=== PATIENT | male | born 1950 | race Caucasian/White ===

== ENCOUNTER → 2017-03-10 | Outpatient (CLI) | payer OTHER | END | disposition home or self-care (01) | LOC: CVU 14:40 | PROVIDERS: ATTEND Nurse Practitioner Family | DX: I74.3 Embolism and thrombosis of arteries of the lower extremities (principal); I70.203 Unspecified atherosclerosis of native arteries of extremities, bilateral legs; R20.0 Anesthesia of skin; I10 Essential (primary) hypertension; Z87.891 Personal history of nicotine dependence; Z95.1 Presence of aortocoronary bypass graft | CPT/HCPCS: 93922; 93925 ==

== ENCOUNTER → 2017-05-03 | Outpatient (CLI) | payer OTHER ==
[~2017-05-03] MED LIST: amlodipine PO
[2017-05-03 16:43] LABS: BLOOD UREA NITROGEN 26 mg/dL (7-18)
[2017-05-03 16:48] LABS: ASPARTATE AMINO TRANSFERASE 19 U/L (15-37)
[2017-05-03 17:02] LABS: DIFF TOTAL CELLS COUNTED 100 CELL DIFF
[2017-05-03 17:16] LABS: ANISOCYTOSIS 1+
[2017-05-03 17:18] LABS: VERIFY COUNTS? YES
== END | disposition home or self-care (01) ==
LOC: STAR 14:44
PROVIDERS: ATTEND Surgery Vascular Surgery
DX: Z01.818 Encounter for other preprocedural examination (principal); I70.212 Atherosclerosis of native arteries of extremities with intermittent claudication, left leg
CPT/HCPCS: 36415; 80053; 85025; 93005

== ENCOUNTER 2017-05-09 05:31 | Inpatient (IN) | payer OTHER, MEDICARE ==
[2017-05-03 15:30] VITALS: BP 164/80
[~2017-05-09] VITALS: Ht 177.8 cm; Wt 90.1 kg
[2017-05-09] MEDS ORDERED: ATEN25TA PO (06:01)
[2017-05-09] MEDS ORDERED: THROMBIN 5,000 UNIT VIAL TP ONE (06:24)
[2017-05-09] MEDS ORDERED: BACITRACIN 50,000 UNIT ONE (06:24)
[2017-05-09] MEDS ORDERED: PROTAMINE SULFATE 10 MG/ML, 5ML ONE (06:24)
[2017-05-09] MEDS ORDERED: HEPARIN 1,000 UNITS/ML, 10ML ONE (06:24)
[2017-05-09] MEDS ORDERED: LACTATED RINGERS 1,000 ML IV SCH (06:39)
[2017-05-09] MEDS ORDERED: FENTANYL PF 250 MCG/5ML ONE (06:59)
[2017-05-09] MEDS ORDERED: MIDAZOLAM 1 MG/ML, 2ML ONE (06:59)
[2017-05-09] MEDS ORDERED: DEXAMETHASONE 4 MG/ML, 1ML ONE (07:21)
[2017-05-09] MEDS ORDERED: CEFAZOLIN 1,000 MG ONE (07:21)
[2017-05-09] MEDS ORDERED: ONDANSETRON 2MG/ML, 2ML ONE ×2 (07:21→10:25)
[2017-05-09] MEDS ORDERED: PROPOFOL 10 MG/ML, 20ML ONE (07:21)
[2017-05-09] MEDS ORDERED: SUCCINYLCHOLINE 20 MG/ML, 10ML ONE (07:21)
[2017-05-09] MEDS ORDERED: ROCURONIUM 10 MG/ML ONE (07:21)
[2017-05-09] MEDS ORDERED: OXYcodone 5 MG/5 ML ORAL.SOL UDC PO PRN (08:30)
[2017-05-09] MEDS ORDERED: FENTANYL PF 100 MCG/2ML IV PRN (08:30)
[2017-05-09] MEDS ORDERED: ONDANSETRON 2MG/ML, 2ML IVPush PRN (08:30)
[2017-05-09] MEDS ORDERED: ACETAMINOPHEN 325 MG TABLET PO PRN (08:30)
[2017-05-09] MEDS ORDERED: METOCLOPRAMIDE 5 MG/ML, 2ML IV PRN (08:30)
[2017-05-09] MEDS ORDERED: LABETALOL 5MG/ML, 20ML ONE (09:13)
[2017-05-09] MEDS ORDERED: hydrALAzine 20 MG/ML, 1ML ONE (09:13)
[2017-05-09] MEDS ORDERED: HYDROmorphone 1 MG/ML, 1ML ONE ×3 (09:13→10:19)
[2017-05-09] MEDS: LABETALOL 5MG/ML, 20ML IV PRN ×2 (09:16→09:28)
[2017-05-09] MEDS: HYDROmorphone 1 MG/ML, 1ML IV PRN ×7 (09:21→10:41)
[2017-05-09] MEDS: hydrALAzine 20 MG/ML, 1ML IV PRN ×2 (09:25→09:47)
[2017-05-09] MEDS ORDERED: ACETAMINOPHEN 650 MG/20.3 ML UDC ONE (09:38)
[2017-05-09] MEDS ORDERED: OXYcodone 5 MG/5 ML ORAL.SOL UDC ONE ×3 (09:39)
[2017-05-09 11:25] VITALS: BP 126/86
[2017-05-09] MEDS ORDERED: morphine SULFATE 10 MG/ML, 1ML IV PRN (12:00)
[2017-05-09] MEDS ORDERED: ONDANSETRON 2MG/ML, 2ML IV PRN (12:00)
[2017-05-09] MEDS: POTASSIUM CHLORIDE 20 MEQ in D5%-0.45% NACL 1,000 ML IV SCH ×2 (15:16→23:02)
[2017-05-09] MEDS: CEFAZOLIN PMX 1GM/50ML 50 ML IVPB SCH ×2 (15:16→23:00)
[2017-05-09] MEDS: HYDROcodone/APAP 5/325 TABLET PO PRN ×2 (19:40→21:01)
[2017-05-09] MEDS: SODIUM CHLORIDE FLUSH 10ML SYR IVF SCH (19:40)
[2017-05-09 20:00] VITALS: BP 123/70
[2017-05-10 00:05] VITALS: BP 120/65
[2017-05-10 04:00] VITALS: BP 133/75
[2017-05-10] MEDS: HYDROcodone/APAP 5/325 TABLET PO PRN ×2 (05:48→13:28)
[2017-05-10] MEDS: ATENOLOL 25 MG TABLET PO SCH (05:48)
[2017-05-10] MEDS: ENOXAPARIN 30 MG/0.3 ML SQ SCH ×2 (05:48→18:33)
[2017-05-10 06:55] VITALS: BP 125/74
[2017-05-10] MEDS: SODIUM CHLORIDE FLUSH 10ML SYR IVF SCH ×2 (09:00→19:14)
[2017-05-10] MEDS: SODIUM CHLORIDE FLUSH 3ML SYRINGE IVF SCH ×2 (09:23→19:20)
[2017-05-10 13:20] VITALS: BP 131/73
[2017-05-10 18:46] VITALS: BP 137/72
[2017-05-11 00:24] VITALS: BP 148/80
[2017-05-11] MEDS: HYDROcodone/APAP 5/325 TABLET PO PRN ×2 (00:28→05:26)
[2017-05-11] MEDS: ENOXAPARIN 30 MG/0.3 ML SQ SCH (05:25)
[2017-05-11] MEDS: ATENOLOL 25 MG TABLET PO SCH (05:26)
[2017-05-11 09:15] VITALS: BP 139/72
[2017-05-11] MEDS ORDERED: HYDR-2442 PO (09:20)
[2017-05-11] MEDS: SODIUM CHLORIDE FLUSH 10ML SYR IVF SCH (09:23)
[2017-05-11] MEDS: SODIUM CHLORIDE FLUSH 3ML SYRINGE IVF SCH (09:23)
== END 2017-05-11 09:30 | disposition home or self-care (01) | DRG 254 ==
LOC: OUT 05:31 → 4NOR 11:20 → OUT 12:37 → 4NOR 12:40
PROVIDERS: ADMIT Surgery Vascular Surgery; ATTEND Surgery Vascular Surgery
PROC: 041L0JL Bypass Left Femoral Artery to Popliteal Artery with Synthetic Substitute, Open Approach (ICD-10-PCS; principal; 2017-05-09 07:30)
DX: I70.212 Atherosclerosis of native arteries of extremities with intermittent claudication, left leg (principal); F17.210 Nicotine dependence, cigarettes, uncomplicated
CPT/HCPCS: 36415; 86850; 86900; C1729; J0690; J1100; J1170; J1644; J1650; J2250; J2405; J2704; J2720; J3010; J3480; C1768; J0330; J0360

== ENCOUNTER → 2017-08-10 | Outpatient (CLI) | payer OTHER ==
[~2017-08-10] MED LIST changes: +ATEN25TA PO; +HYDR-2442 PO
== END | disposition home or self-care (01) ==
LOC: EDSTATUS 13:00 → RAD 13:03
PROVIDERS: ATTEND Surgery Vascular Surgery
DX: I70.203 Unspecified atherosclerosis of native arteries of extremities, bilateral legs (principal)
CPT/HCPCS: 36415; 82565

== ENCOUNTER → 2017-08-17 | Outpatient (CLI) | payer MEDICARE, OTHER ==
[~2017-08-17] MED LIST changes: +PANT40TA5 PO; +TRAM50TA2 PO
== END | disposition home or self-care (01) ==
LOC: RAD 15:01
PROVIDERS: ATTEND Nurse Practitioner Family
DX: F17.200 Nicotine dependence, unspecified, uncomplicated (principal)
CPT/HCPCS: 71020

== ENCOUNTER → 2017-10-12 | Outpatient (CLI) | payer MEDICARE, OTHER ==
[~2017-10-12] MED LIST changes: +HYDR-3240 PO; +WARF2.5T PO
== END | disposition home or self-care (01) ==
LOC: CVU 06:47
PROVIDERS: ATTEND Surgery
DX: Z01.818 Encounter for other preprocedural examination (principal); I70.212 Atherosclerosis of native arteries of extremities with intermittent claudication, left leg; I10 Essential (primary) hypertension
CPT/HCPCS: 93922; 93926

== ENCOUNTER 2017-11-23 14:49 | Inpatient (IN) | payer OTHER ==
[~2017-11-23] VITALS: Ht 177.8 cm; Wt 89.3 kg
[~2017-11-23 14:49] MED LIST changes: +ONDANSETRON 2MG/ML, 2ML ONE; +RIVA20TA PO
[2017-11-23 15:31] VITALS: BP 145/78
[2017-11-23] MEDS ORDERED: LACTATED RINGERS 1,000 ML IV SCH (15:37)
[2017-11-23] MEDS ORDERED: MIDAZOLAM 1 MG/ML, 2ML ONE (16:46)
[2017-11-23] MEDS ORDERED: FENTANYL PF 250 MCG/5ML ONE (16:46)
[2017-11-23] MEDS ORDERED: BUPIVACAINE/PF 0.5% ONE (17:14)
[2017-11-23] MEDS ORDERED: BACITRACIN 50,000 UNIT ONE (17:15)
[2017-11-23] MEDS ORDERED: EPINEPHRINE 1 MG/ML, 1ML ONE (17:15)
[2017-11-23] MEDS ORDERED: hydrALAzine 20 MG/ML, 1ML IV PRN ×2 (17:30→20:00)
[2017-11-23] MEDS ORDERED: LABETALOL 5MG/ML, 20ML IV PRN (17:30)
[2017-11-23] MEDS ORDERED: ONDANSETRON 2MG/ML, 2ML IVPush PRN (17:30)
[2017-11-23] MEDS ORDERED: PROMETHAZINE 25 MG/ML, 1ML IV PRN (17:30)
[2017-11-23] MEDS ORDERED: ACETAMINOPHEN 325 MG TABLET PO PRN (17:30)
[2017-11-23] MEDS ORDERED: FENTANYL PF 100 MCG/2ML IV PRN (17:30)
[2017-11-23] MEDS ORDERED: HYDROmorphone 1 MG/ML, 1ML IV PRN (17:30)
[2017-11-23] MEDS ORDERED: OXYcodone 5 MG/5 ML ORAL.SOL UDC PO PRN (17:30)
[2017-11-23] MEDS ORDERED: DEXAMETHASONE 4 MG/ML, 1ML ONE (17:37)
[2017-11-23] MEDS ORDERED: ROCURONIUM 10 MG/ML,10ML ONE (17:40)
[2017-11-23] MEDS ORDERED: PROPOFOL 10 MG/ML, 20ML ONE (17:40)
[2017-11-23] MEDS ORDERED: VANCOMYCIN 1,000 MG ONE (17:55)
[2017-11-23 19:30] VITALS: BP 120/66
[2017-11-23] MEDS ORDERED: ACETAMINOPHEN 650 MG SUPP PR PRN (20:00)
[2017-11-23] MEDS ORDERED: PHARMACOKINETIC MONITORING MC PRN (20:00)
[2017-11-23] MEDS ORDERED: KETOROLAC 30 MG/1 ML IV PRN (20:00)
[2017-11-23] MEDS ORDERED: VANCOMYCIN PER PHARMACY MC PRN (20:00)
[2017-11-23] MEDS ORDERED: PHARMACOKINETIC CONSULTATION MC ONE (20:00)
[2017-11-23] MEDS: POTASSIUM CHLORIDE 20 MEQ in D5%-0.45% NACL 1,000 ML IV SCH (21:43)
[2017-11-23] MEDS: SODIUM CHLORIDE FLUSH 10ML SYR IVF SCH (21:44)
[2017-11-23] MEDS: DIPHENHYDRAMINE 50 MG/ML, 1ML IV PRN (23:49)
[2017-11-23 23:54] VITALS: BP 115/64
[2017-11-24 03:48] VITALS: BP 116/65
[2017-11-24 05:43] LABS: BASOPHILS # (AUTO) 0.01 x10^3/uL (0-0.1); BASOPHILS % (AUTO) 0 % (0-1); EOSINOPHILS # (AUTO) 0.01 x10^3/uL (0-0.4); EOSINOPHILS % (AUTO) 0 % (1-7); LYMPHOCYTES # (AUTO) 2.37 x10^3/uL (1-3.4); LYMPHOCYTES % (AUTO) 44 % (22-44); MD NO; MEAN CORPUSCULAR HGB CONC 33.2 g/dL (33.2-36.2); MEAN CORPUSCULAR VOLUME 84.3 fL (81-97); MONOCYTES # (AUTO) 0.14 x10^3/uL (0.2-0.8); MONOCYTES % (AUTO) 3 % (2-9); NEUTROPHILS # (AUTO) 2.89 x10^3/uL (1.8-6.8); NEUTROPHILS % (AUTO) 53 % (42-75); PLATELET COUNT 176 x10^3/uL (130-400); RED BLOOD COUNT 3.63 x10^6/uL (4.38-5.82); RED CELL DISTRIBUTION WIDTH 15.3 % (9.4-14.8)
[2017-11-24 05:54] LABS: ALBUMIN 2.2 g/dL (3.4-5.0); ANION GAP 9 mmol/L (5-15); CALCIUM 8.1 mg/dL (8.5-10.1); CHLORIDE 110 mmol/L (98-107); CREATININE 1.99 mg/dL (0.7-1.3)
[2017-11-24] MEDS: ATENOLOL 25 MG TABLET PO SCH (06:02)
[2017-11-24 06:30] VITALS: BP 133/65
[2017-11-24] MEDS: SODIUM CHLORIDE FLUSH 10ML SYR IVF SCH ×2 (08:08→19:42)
[2017-11-24] MEDS: POTASSIUM CHLORIDE 20 MEQ in D5%-0.45% NACL 1,000 ML IV SCH ×2 (08:47→22:56)
[2017-11-24] MEDS ORDERED: FENTANYL PF 100 MCG/2ML ONE (09:57)
[2017-11-24] MEDS ORDERED: MIDAZOLAM 1 MG/ML, 2ML ONE (09:57)
[2017-11-24] MEDS ORDERED: PROPOFOL 10 MG/ML, 20ML ONE (09:59)
[2017-11-24] MEDS ORDERED: CEFAZOLIN 1,000 MG ONE (09:59)
[2017-11-24] MEDS ORDERED: ONDANSETRON 2MG/ML, 2ML ONE (09:59)
[2017-11-24] MEDS ORDERED: DEXAMETHASONE 4 MG/ML, 1ML ONE (09:59)
[2017-11-24] MEDS: PIPERACILLIN/TAZO/PMX 3.375GM 50 ML IV SCH ×3 (10:21→22:56)
[2017-11-24] MEDS ORDERED: PIPERACILLIN/TAZO/PMX 3.375GM 50 ML ONE (10:29)
[2017-11-24] MEDS ORDERED: DAKIN'S SOLUTION 1/4 STRENGTH 1,000 ML IRRIG SOLN EXT ONE (10:30)
[2017-11-24] MEDS ORDERED: MEPERIDINE/PF 25MG/0.5ML IVPush PRN (11:00)
[2017-11-24] MEDS ORDERED: ALBUTEROL/IPRATROPIUM 2.5MG/0.5MG, 3 ML NPPB PRN (11:00)
[2017-11-24] MEDS ORDERED: LABETALOL 5MG/ML, 20ML IV PRN (11:00)
[2017-11-24] MEDS ORDERED: hydrALAzine 20 MG/ML, 1ML IV PRN (11:00)
[2017-11-24] MEDS ORDERED: OXYcodone 5 MG/5 ML ORAL.SOL UDC PO PRN (11:00)
[2017-11-24] MEDS ORDERED: MIDAZOLAM 1 MG/ML, 2ML IV PRN (11:00)
[2017-11-24] MEDS ORDERED: ONDANSETRON 2MG/ML, 2ML IVPush PRN (11:00)
[2017-11-24] MEDS ORDERED: PROMETHAZINE 25 MG/ML, 1ML IV PRN (11:00)
[2017-11-24] MEDS ORDERED: FENTANYL PF 100 MCG/2ML IV PRN (11:00)
[2017-11-24] MEDS ORDERED: DIAZEPAM 5 MG/ML, 2ML IVPush PRN (11:00)
[2017-11-24] MEDS ORDERED: ACETAMINOPHEN 325 MG TABLET PO PRN (11:00)
[2017-11-24] MEDS ORDERED: HYDROmorphone 1 MG/ML, 1ML IV PRN (11:00)
[2017-11-24 12:24] VITALS: BP 138/71
[2017-11-24] MEDS ORDERED: PHENYLEPHRINE 10 MG/ML ONE (16:26)
[2017-11-24] MEDS: VANCOMYCIN 1,500 MG in SODIUM CHLORIDE 0.9% 250 ML IV SCH (17:06)
[2017-11-24 19:15] VITALS: BP 114/66
[2017-11-24] MEDS: DIPHENHYDRAMINE 25 MG CAPSULE PO PRN (22:56)
[2017-11-25] VITALS (8 sets, daily range): BP systolic 112–177; BP diastolic 62–86
[2017-11-25] MEDS: PIPERACILLIN/TAZO/PMX 3.375GM 50 ML IV SCH ×4 (05:42→22:46)
[2017-11-25] MEDS: ATENOLOL 25 MG TABLET PO SCH (05:42)
[2017-11-25] MEDS: SODIUM CHLORIDE FLUSH 10ML SYR IVF SCH ×2 (07:33→21:00)
[2017-11-25] MEDS: POTASSIUM CHLORIDE 20 MEQ in D5%-0.45% NACL 1,000 ML IV SCH ×2 (09:10→18:32)
[2017-11-25] MEDS: DIPHENHYDRAMINE 25 MG CAPSULE PO PRN (22:46)
[2017-11-26 02:49] VITALS: BP 112/61
[2017-11-26] MEDS: D5%-0.45NACL+KCL 20MEQ 1,000 ML IV SCH ×2 (04:33→16:44)
[2017-11-26] MEDS: PIPERACILLIN/TAZO/PMX 3.375GM 50 ML IV SCH ×2 (04:33→11:22)
[2017-11-26] MEDS: ATENOLOL 25 MG TABLET PO SCH (05:41)
[2017-11-26] MEDS: VANCOMYCIN 1,500 MG in SODIUM CHLORIDE 0.9% 250 ML IV SCH (06:04)
[2017-11-26 07:15] VITALS: BP 121/70
[2017-11-26] MEDS: SODIUM CHLORIDE FLUSH 10ML SYR IVF SCH ×2 (09:00→20:00)
[2017-11-26 12:30] VITALS: BP 119/72
[2017-11-26] MEDS ORDERED: HEPARIN 1,000 UNITS/ML, 10ML ONE (13:42)
[2017-11-26] MEDS ORDERED: BACITRACIN 50,000 UNIT ONE (13:42)
[2017-11-26] MEDS ORDERED: BUPIVACAINE/PF 0.5% ONE (13:42)
[2017-11-26] MEDS ORDERED: THROMBIN 5,000 UNIT VIAL TP ONE (13:42)
[2017-11-26] MEDS ORDERED: EPINEPHRINE 1 MG/ML, 1ML ONE (13:42)
[2017-11-26] MEDS ORDERED: MIDAZOLAM 1 MG/ML, 2ML ONE (13:46)
[2017-11-26] MEDS ORDERED: FENTANYL PF 100 MCG/2ML ONE (13:46)
[2017-11-26] MEDS ORDERED: PROPOFOL 10 MG/ML, 20ML ONE (13:54)
[2017-11-26] MEDS ORDERED: PHENYLEPHRINE 10 MG/ML ONE (13:54)
[2017-11-26] MEDS ORDERED: DEXAMETHASONE 4 MG/ML, 1ML ONE (13:54)
[2017-11-26] MEDS ORDERED: ONDANSETRON 2MG/ML, 2ML IVPush PRN (14:30)
[2017-11-26] MEDS ORDERED: hydrALAzine 20 MG/ML, 1ML IV PRN (14:30)
[2017-11-26] MEDS ORDERED: FENTANYL PF 100 MCG/2ML IV PRN (14:30)
[2017-11-26] MEDS ORDERED: ALBUTEROL/IPRATROPIUM 2.5MG/0.5MG, 3 ML NPPB PRN (14:30)
[2017-11-26] MEDS ORDERED: MIDAZOLAM 1 MG/ML, 2ML IV PRN (14:30)
[2017-11-26] MEDS ORDERED: MEPERIDINE/PF 25MG/0.5ML IVPush PRN (14:30)
[2017-11-26] MEDS ORDERED: LABETALOL 5MG/ML, 20ML IV PRN (14:30)
[2017-11-26] MEDS ORDERED: HYDROmorphone 1 MG/ML, 1ML IV PRN (14:30)
[2017-11-26] MEDS ORDERED: ACETAMINOPHEN 325 MG TABLET PO PRN (14:30)
[2017-11-26] MEDS ORDERED: PROMETHAZINE 12.5 MG SUPP PR PRN (14:30)
[2017-11-26] MEDS ORDERED: DIAZEPAM 5 MG/ML, 2ML IVPush PRN (14:30)
[2017-11-26] MEDS ORDERED: OXYcodone 5 MG/5 ML ORAL.SOL UDC PO PRN (14:30)
[2017-11-26] MEDS ORDERED: VISIPAQUE 270 MG/ML, 50ML BOTTLE ONE (15:07)
[2017-11-26] MEDS ORDERED: OXYcodone 5 MG/5 ML ORAL.SOL UDC ONE (15:33)
[2017-11-26] MEDS ORDERED: ACETAMINOPHEN 650 MG/20.3 ML UDC ONE (15:33)
[2017-11-26] MEDS: ACETAMINOPHEN 325 MG TABLET PO PRN (15:37)
[2017-11-26 15:51] VITALS: BP 146/73
[2017-11-26] MEDS: CIPROFLOXACIN/PMX 400MG/200ML 200 ML IV SCH (16:44)
[2017-11-26 19:58] VITALS: BP 123/70
[2017-11-26] MEDS: DIPHENHYDRAMINE 25 MG CAPSULE PO PRN (20:00)
[2017-11-26] MEDS: morphine SULFATE 10 MG/ML, 1ML IV PRN (23:10)
[2017-11-27 00:40] VITALS: BP 151/81
[2017-11-27] MEDS: D5%-0.45NACL+KCL 20MEQ 1,000 ML IV SCH ×2 (02:43→12:28)
[2017-11-27] MEDS: morphine SULFATE 10 MG/ML, 1ML IV PRN (04:21)
[2017-11-27] MEDS: CIPROFLOXACIN/PMX 400MG/200ML 200 ML IV SCH ×2 (04:22→16:34)
[2017-11-27] MEDS: ATENOLOL 25 MG TABLET PO SCH (05:41)
[2017-11-27 07:52] VITALS: BP 136/74
[2017-11-27] MEDS: SODIUM CHLORIDE FLUSH 10ML SYR IVF SCH ×2 (08:21→21:00)
[2017-11-27 15:12] VITALS: BP 133/70
[2017-11-27 17:37] LABS: MEAN CORPUSCULAR HEMOGLOBIN 27.3 pg (27.5-34.5); MEAN CORPUSCULAR HGB CONC 32.1 g/dL (33.2-36.2); MEAN CORPUSCULAR VOLUME 84.9 fL (81-97); MEAN PLATELET VOLUME 8.1 fL (7.4-10.4); PLATELET COUNT 215 x10^3/uL (130-400); RED CELL DISTRIBUTION WIDTH 15.3 % (9.4-14.8)
[2017-11-27 17:50] LABS: MD YES
[2017-11-27 17:52] LABS: ALANINE AMINOTRANSFERASE 22 U/L (12-78); ALBUMIN 2.4 g/dL (3.4-5.0); ANION GAP 7 mmol/L (5-15); CALCIUM 7.5 mg/dL (8.5-10.1); CHLORIDE 113 mmol/L (98-107); CREATININE 1.97 mg/dL (0.7-1.3)
[2017-11-27 17:54] LABS: BAND#(MANUAL) 0.07 x10^3/uL; BANDS%(MANUAL) 1 % (0-7); EOS#(MANUAL) 0.07 x10^3/uL (0.0-0.4); EOS% (MANUAL) 1 % (1-7); LYMPH#(MANUAL) 3.18 x10^3/uL (1-3.4); LYMPHS% (MANUAL) 43 % (22-44); MONOS% (MANUAL) 4 % (2-9); MYELOCYTES# (MANUAL) 0.37 x10^3/uL (0-0); MYELOCYTES% (MANUAL) 5 % (0-0); REACTIVE LYMPHS # (MANUAL) 0.22 x10^3/uL (0-0); REACTIVE LYMPHS % (MANUAL) 3 % (0-0); SEG#(MANUAL) 3.18 x10^3/uL (1.8-6.8); SEGS% (MANUAL) 43 % (42-75)
[2017-11-27 17:55] LABS: <PLATELET ESTIMATE> ADEQUATE; <PLT MORPHOLOGY> NORMAL PLT MORPH; ALKALINE PHOSPHATASE 73 U/L (45-117); BILIRUBIN,TOTAL 0.2 mg/dL (0.2-1.0); ROULEAUX 2+; TOTAL PROTEIN 5.6 g/dL (6.4-8.2)
[2017-11-27 17:56] LABS: OVALOCYTES 1+
[2017-11-27] MEDS: VANCOMYCIN 1,500 MG in SODIUM CHLORIDE 0.9% 250 ML IV SCH (18:19)
[2017-11-27 19:37] VITALS: BP 114/68
[2017-11-27] MEDS: DIPHENHYDRAMINE 25 MG CAPSULE PO PRN (21:16)
[2017-11-28] MEDS: D5%-0.45NACL+KCL 20MEQ 1,000 ML IV SCH ×4 (01:26→22:42)
[2017-11-28 02:47] VITALS: BP 124/73
[2017-11-28] MEDS: CIPROFLOXACIN/PMX 400MG/200ML 200 ML IV SCH ×2 (04:10→16:17)
[2017-11-28] MEDS: ATENOLOL 25 MG TABLET PO SCH (06:00)
[2017-11-28 08:13] VITALS: BP 128/75
[2017-11-28] MEDS: SODIUM CHLORIDE FLUSH 10ML SYR IVF SCH ×2 (08:50→21:00)
[2017-11-28 15:30] VITALS: BP 127/73
[2017-11-28 19:40] VITALS: BP 127/66
[2017-11-28] MEDS: morphine SULFATE 10 MG/ML, 1ML IV PRN (21:00)
[2017-11-29 02:11] VITALS: BP 123/64
[2017-11-29] MEDS: CIPROFLOXACIN/PMX 400MG/200ML 200 ML IV SCH ×2 (04:29→15:46)
[2017-11-29 05:35] VITALS: BP 128/69
[2017-11-29] MEDS: ATENOLOL 25 MG TABLET PO SCH (05:35)
[2017-11-29] MEDS ORDERED: BACITRACIN 50,000 UNIT ONE (07:03)
[2017-11-29] MEDS ORDERED: PROTAMINE SULFATE 10 MG/ML, 5ML ONE (07:03)
[2017-11-29] MEDS ORDERED: LIDOCAINE 1%, 50ML ONE (07:03)
[2017-11-29] MEDS ORDERED: THROMBIN 5,000 UNIT VIAL TP ONE ×5 (07:03→18:54)
[2017-11-29] MEDS ORDERED: HEPARIN 1,000 UNITS/ML, 10ML ONE (07:03)
[2017-11-29 07:26] VITALS: BP 128/73
[2017-11-29] MEDS: SODIUM CHLORIDE FLUSH 10ML SYR IVF SCH ×2 (07:49→22:47)
[2017-11-29] MEDS ORDERED: VANCOMYCIN 1,300 MG in SODIUM CHLORIDE 0.9% 250 ML IV SCH (08:00)
[2017-11-29] MEDS: ACETAMINOPHEN 325 MG TABLET PO PRN (10:34)
[2017-11-29] MEDS: D5%-0.45NACL+KCL 20MEQ 1,000 ML IV SCH ×2 (10:44→18:30)
[2017-11-29 12:57] VITALS: BP 142/79
[2017-11-29] MEDS ORDERED: MIDAZOLAM 1 MG/ML, 2ML ONE (13:52)
[2017-11-29] MEDS ORDERED: FENTANYL PF 250 MCG/5ML ONE (13:53)
[2017-11-29] MEDS ORDERED: HEPARIN 1,000 UNITS/ML, 10ML IV ONE (16:27)
[2017-11-29] MEDS ORDERED: FENTANYL PF 100 MCG/2ML ONE ×2 (16:42→22:55)
[2017-11-29] MEDS ORDERED: hydrALAzine 20 MG/ML, 1ML IV PRN (17:30)
[2017-11-29] MEDS ORDERED: EPHEDRINE 50 MG/ML, 1ML IVPush PRN (17:30)
[2017-11-29] MEDS ORDERED: MEPERIDINE/PF 25MG/0.5ML IVPush PRN (17:30)
[2017-11-29] MEDS ORDERED: LABETALOL 5MG/ML, 20ML IV PRN (17:30)
[2017-11-29] MEDS ORDERED: HYDROmorphone 1 MG/ML, 1ML IV PRN (17:30)
[2017-11-29] MEDS ORDERED: OXYcodone 5 MG/5 ML ORAL.SOL UDC PO PRN (17:30)
[2017-11-29] MEDS ORDERED: ONDANSETRON 2MG/ML, 2ML IVPush PRN (17:30)
[2017-11-29] MEDS ORDERED: PROMETHAZINE 12.5 MG SUPP PR PRN (17:30)
[2017-11-29] MEDS ORDERED: DIAZEPAM 5 MG/ML, 2ML IVPush PRN (17:30)
[2017-11-29] MEDS ORDERED: METOPROLOL 1 MG/ML, 5ML IV PRN (17:30)
[2017-11-29] MEDS ORDERED: ALBUTEROL SULFATE 2.5 MG/3 ML NPPB PRN (17:30)
[2017-11-29] MEDS ORDERED: ACETAMINOPHEN 325 MG TABLET PO PRN (17:30)
[2017-11-29] MEDS ORDERED: MIDAZOLAM 1 MG/ML, 2ML IV PRN (17:30)
[2017-11-29] MEDS ORDERED: HYDROmorphone 2 MG/ML, 1ML ONE (17:38)
[2017-11-29] MEDS ORDERED: GLYCOPYRROLATE 0.2MG/1ML, 5ML ONE (18:06)
[2017-11-29] MEDS ORDERED: NEOSTIGMINE 1 MG/ML, 10ML ONE (18:06)
[2017-11-29] MEDS ORDERED: DEXAMETHASONE 4 MG/ML, 1ML ONE (18:06)
[2017-11-29] MEDS ORDERED: PROPOFOL 10 MG/ML, 20ML ONE (18:06)
[2017-11-29] MEDS ORDERED: ONDANSETRON 2MG/ML, 2ML ONE (18:06)
[2017-11-29] MEDS ORDERED: SUCCINYLCHOLINE 20 MG/ML, 10ML ONE (18:06)
[2017-11-29] MEDS ORDERED: ROCURONIUM 10 MG/ML,10ML ONE (18:06)
[2017-11-29] MEDS ORDERED: CALCIUM CHLORIDE 10%, 10ML SYR ONE ×2 (20:14→20:15)
[2017-11-29] MEDS ORDERED: THROMBIN 20,000 UNIT VIAL TP ONE ×2 (20:41→20:57)
[2017-11-29] MEDS ORDERED: PROPOFOL 100 ML IV ONE (23:45)
[2017-11-30] MEDS: FENTANYL PF 100 MCG/2ML IV PRN ×4 (00:16→12:48)
[2017-11-30] MEDS: PROPOFOL 100 ML IV PRN ×4 (00:16→16:22)
[2017-11-30] MEDS ORDERED: SODIUM CHLORIDE 0.9% 1,000 ML IV SCH (00:30)
[2017-11-30] MEDS: SODIUM CHLORIDE 0.9% 1,000 ML IV SCH ×2 (00:30→16:19)
[2017-11-30] MEDS ORDERED: HEPARIN 25,000 UNITS/500ML PMX 500 ML IV SCH (01:00)
[2017-11-30] MEDS ORDERED: SODIUM CHLORIDE 0.9% 1,000ML IVBOLUS ONE ×2 (01:30→03:30)
[2017-11-30 01:44] LABS: MEAN CORPUSCULAR HEMOGLOBIN 27.9 pg (27.5-34.5); MEAN CORPUSCULAR HGB CONC 33.2 g/dL (33.2-36.2); MEAN CORPUSCULAR VOLUME 84.1 fL (81-97); MEAN PLATELET VOLUME 7.9 fL (7.4-10.4); PLATELET COUNT 286 x10^3/uL (130-400); RED BLOOD COUNT 4.06 x10^6/uL (4.38-5.82); RED CELL DISTRIBUTION WIDTH 15.5 % (9.4-14.8)
[2017-11-30 01:49] LABS: INTERNATIONAL NORMALIZED RATIO 1.08 (0.93-1.1); PROTHROMBIN TIME 11.1 Seconds (9.6-11.5)
[2017-11-30 02:01] LABS: MD YES
[2017-11-30 02:04] LABS: BAND#(MANUAL) 0.71 x10^3/uL; BANDS%(MANUAL) 3 % (0-7); LYMPHS% (MANUAL) 17 % (22-44); MYELOCYTES# (MANUAL) 0.24 x10^3/uL (0-0); MYELOCYTES% (MANUAL) 1 % (0-0); SEG#(MANUAL) 18.57 x10^3/uL (1.8-6.8); SEGS% (MANUAL) 79 % (42-75)
[2017-11-30 02:05] LABS: ANISOCYTOSIS 1+; POLYCHROMASIA 1+
[2017-11-30 02:06] LABS: <PLATELET ESTIMATE> ADEQUATE; <PLT MORPHOLOGY> NORMAL PLT MORPH; SMUDGE CELLS 1+
[2017-11-30] MEDS ORDERED: LIDOCAINE-MPF 1%, 2ML ENDO PRN (03:30)
[2017-11-30] MEDS ORDERED: FAMOTIDINE 20 MG/2 ML IV SCH (03:30)
[2017-11-30] MEDS ORDERED: PHARMACY MAY ADJ FOR RENAL FX MC SCH (03:30)
[2017-11-30] MEDS ORDERED: FAMOTIDINE 20 MG/2 ML ONE (03:54)
[2017-11-30 04:00] VITALS: BP 120/60
[2017-11-30] MEDS: morphine SULFATE 10 MG/ML, 1ML IV PRN ×3 (04:31→19:49)
[2017-11-30] MEDS: CIPROFLOXACIN/PMX 400MG/200ML 200 ML IV SCH ×2 (04:32→16:22)
[2017-11-30 05:16] LABS: ALBUMIN 1.9 g/dL (3.4-5.0); ANION GAP 9 mmol/L (5-15); CALCIUM 6.9 mg/dL (8.5-10.1); CHLORIDE 116 mmol/L (98-107)
[2017-11-30 05:20] LABS: ALANINE AMINOTRANSFERASE 13 U/L (12-78); ALKALINE PHOSPHATASE 54 U/L (45-117); BILIRUBIN,TOTAL 1.4 mg/dL (0.2-1.0); TOTAL PROTEIN 4.3 g/dL (6.4-8.2)
[2017-11-30 05:21] LABS: MEAN CORPUSCULAR HEMOGLOBIN 28.4 pg (27.5-34.5); MEAN CORPUSCULAR HGB CONC 33.3 g/dL (33.2-36.2); MEAN CORPUSCULAR VOLUME 85.1 fL (81-97); PLATELET COUNT 295 x10^3/uL (130-400); RED BLOOD COUNT 3.74 x10^6/uL (4.38-5.82); RED CELL DISTRIBUTION WIDTH 15.2 % (9.4-14.8)
[2017-11-30 05:53] LABS: MD YES
[2017-11-30] MEDS ORDERED: THROMBIN 20,000 UNIT VIAL TP ONE (05:54)
[2017-11-30] MEDS ORDERED: HEPARIN 1,000 UNITS/ML, 30ML ONE (05:54)
[2017-11-30] MEDS ORDERED: PROTAMINE SULFATE 10 MG/ML, 5ML ONE (05:55)
[2017-11-30] MEDS ORDERED: PAPAVERINE 30 MG/ML, 2ML ONE (05:55)
[2017-11-30] MEDS: ATENOLOL 25 MG TABLET PO SCH (06:00)
[2017-11-30] MEDS ORDERED: HEPARIN 5,000 UNITS/ML, 1ML ONE (06:02)
[2017-11-30 06:15] LABS: BAND#(MANUAL) 0.32 x10^3/uL; BANDS%(MANUAL) 1 % (0-7); LYMPH#(MANUAL) 7.31 x10^3/uL (1-3.4); LYMPHS% (MANUAL) 23 % (22-44); MONOS#(MANUAL) 2.23 x10^3/uL (0.3-2.7); MONOS% (MANUAL) 7 % (2-9); SEG#(MANUAL) 21.94 x10^3/uL (1.8-6.8); SEGS% (MANUAL) 69 % (42-75)
[2017-11-30 06:16] LABS: ANISOCYTOSIS 1+
[2017-11-30] MEDS ORDERED: FENTANYL PF 250 MCG/5ML ONE (06:16)
[2017-11-30 06:17] LABS: OVALOCYTES 1+; POLYCHROMASIA 1+; SMUDGE CELLS 1+
[2017-11-30 06:18] LABS: <PLATELET ESTIMATE> ADEQUATE; <PLT MORPHOLOGY> NORMAL PLT MORPH
[2017-11-30] MEDS ORDERED: HEPARIN 5,000 UNITS/ML, 1ML SQ ONE (06:30)
[2017-11-30] MEDS ORDERED: ALBUMIN HUMAN 5% 500 ML ONE (06:37)
[2017-11-30] MEDS ORDERED: ALBUTEROL SULFATE 200 PUFFS/8.5 GR INH ONE (06:42)
[2017-11-30] MEDS ORDERED: CALCIUM CHLORIDE 10%, 10ML SYR ONE ×3 (06:53→06:56)
[2017-11-30] MEDS ORDERED: SODIUM BICARBONATE 1 MEQ/ML, 50ML VIAL ONE ×3 (06:57→07:23)
[2017-11-30] MEDS ORDERED: EPINEPHRINE 1 MG/ML, 1ML ONE (07:19)
[2017-11-30] MEDS ORDERED: BUPIVACAINE/PF 0.5% ONE (07:19)
[2017-11-30] MEDS ORDERED: ROCURONIUM 10 MG/ML,10ML ONE (07:23)
[2017-11-30] MEDS ORDERED: HEPARIN 1,000 UNITS/ML, 10ML ONE (08:04)
[2017-11-30] MEDS ORDERED: HYDROmorphone 2 MG/ML, 1ML ONE (09:13)
[2017-11-30] MEDS ORDERED: MIDAZOLAM 1 MG/ML, 2ML ONE (09:37)
[2017-11-30] MEDS ORDERED: HEPARIN 5,000 UNITS/ML, 1ML IV ONE (11:30)
[2017-11-30] MEDS ORDERED: HEPARIN 25,000 UNITS/500ML PMX 500 ML IV PRN ×3 (11:30→16:09)
[2017-11-30] MEDS: SODIUM CHLORIDE FLUSH 10ML SYR IVF SCH ×2 (12:53→20:57)
[2017-11-30] MEDS: FENTANYL PF 100 MCG/2ML IVPush PRN ×2 (14:11→15:01)
[2017-11-30 14:26] LABS: ANION GAP 13 mmol/L (5-15); CALCIUM 6.9 mg/dL (8.5-10.1); CHLORIDE 117 mmol/L (98-107)
[2017-11-30 14:27] LABS: CREATININE 2.48 mg/dL (0.7-1.3)
[2017-11-30 15:00] LABS: MD YES; MEAN CORPUSCULAR HEMOGLOBIN 29.3 pg (27.5-34.5); MEAN CORPUSCULAR VOLUME 86.3 fL (81-97); PLATELET COUNT 182 x10^3/uL (130-400); RED BLOOD COUNT 3.37 x10^6/uL (4.38-5.82); RED CELL DISTRIBUTION WIDTH 15.3 % (9.4-14.8)
[2017-11-30 16:02] LABS: BAND#(MANUAL) 0.47 x10^3/uL; BANDS%(MANUAL) 4 % (0-7); LYMPH#(MANUAL) 1.29 x10^3/uL (1-3.4); LYMPHS% (MANUAL) 11 % (22-44); METAMYELOCYTES# (MANUAL) 0.23 x10^3/uL (0-0); METAMYELOCYTES% (MANUAL) 2 % (0-1); MONOS#(MANUAL) 0.12 x10^3/uL (0.3-2.7); MONOS% (MANUAL) 1 % (2-9); SEG#(MANUAL) 9.59 x10^3/uL (1.8-6.8); SEGS% (MANUAL) 82 % (42-75)
[2017-11-30 16:03] LABS: ANISOCYTOSIS 1+
[2017-11-30 16:04] LABS: <PLATELET ESTIMATE> ADEQUATE; <PLT MORPHOLOGY> NORMAL PLT MORPH
[2017-11-30] MEDS: HEPARIN 5,000 UNITS/ML, 1ML IV PRN ×2 (16:15→22:38)
[2017-11-30] MEDS ORDERED: MAGNESIUM SULFATE PMX 4GM/100M 100 ML IV ONE (17:30)
[2017-11-30] MEDS: FENTANYL PF 2,500 MCG in SODIUM CHLORIDE 0.9% 200 ML IV PRN (17:50)
[2017-11-30] MEDS: ONDANSETRON 2MG/ML, 2ML IV PRN (19:46)
[2017-11-30] MEDS ORDERED: VANCOMYCIN 1,300 MG in SODIUM CHLORIDE 0.9% 250 ML IV SCH (22:30)
[2017-11-30] MEDS ORDERED: QUETIAPINE 25MG TABLET ONE (23:22)
[2017-11-30] MEDS: QUETIAPINE 25MG TABLET PO SCH (23:23)
[2017-12-01] MEDS: PROPOFOL 100 ML IV PRN ×2 (01:10→06:24)
[2017-12-01] MEDS: SODIUM CHLORIDE 0.9% 1,000 ML IV SCH ×3 (01:18→21:51)
[2017-12-01 03:36] LABS: MEAN CORPUSCULAR HEMOGLOBIN 29.4 pg (27.5-34.5); MEAN CORPUSCULAR VOLUME 86.5 fL (81-97); MEAN PLATELET VOLUME 7.6 fL (7.4-10.4); PLATELET COUNT 124 x10^3/uL (130-400); RED CELL DISTRIBUTION WIDTH 15.5 % (9.4-14.8)
[2017-12-01 03:39] LABS: ANION GAP 8 mmol/L (5-15); CALCIUM 6.9 mg/dL (8.5-10.1); CHLORIDE 118 mmol/L (98-107); CREATININE 2.49 mg/dL (0.7-1.3)
[2017-12-01 04:00] VITALS: BP 163/74
[2017-12-01 04:02] LABS: MD YES
[2017-12-01 04:06] VITALS: BP 146/55
[2017-12-01 04:08] LABS: ANISOCYTOSIS 1+; LYMPH#(MANUAL) 1.08 x10^3/uL (1-3.4); LYMPHS% (MANUAL) 18 % (22-44); METAMYELOCYTES# (MANUAL) 0.06 x10^3/uL (0-0); METAMYELOCYTES% (MANUAL) 1 % (0-1); MONOS#(MANUAL) 0.06 x10^3/uL (0.3-2.7); MONOS% (MANUAL) 1 % (2-9); MYELOCYTES# (MANUAL) 0.06 x10^3/uL (0-0); MYELOCYTES% (MANUAL) 1 % (0-0); POLYCHROMASIA 1+; REACTIVE LYMPHS # (MANUAL) 0.06 x10^3/uL (0-0); REACTIVE LYMPHS % (MANUAL) 1 % (0-0); SEG#(MANUAL) 4.68 x10^3/uL (1.8-6.8); SEGS% (MANUAL) 78 % (42-75)
[2017-12-01 04:09] LABS: <PLATELET ESTIMATE> DECREASED; <PLT MORPHOLOGY> NORMAL PLT MORPH
[2017-12-01] MEDS: CIPROFLOXACIN/PMX 400MG/200ML 200 ML IV SCH ×2 (04:19→15:39)
[2017-12-01 04:36] VITALS: BP 138/55
[2017-12-01] MEDS: HEPARIN 5,000 UNITS/ML, 1ML IV PRN (05:19)
[2017-12-01] MEDS: ATENOLOL 25 MG TABLET PO SCH (05:20)
[2017-12-01 06:27] VITALS: BP 124/53
[2017-12-01] MEDS: QUETIAPINE 25MG TABLET PO SCH ×2 (07:30→11:24)
[2017-12-01] MEDS: FAMOTIDINE 20 MG/2 ML IV SCH (08:57)
[2017-12-01] MEDS ORDERED: ARGATROBAN/NACL 50 MG/50 ML 50 ML IV PRN ×2 (09:00→18:00)
[2017-12-01] MEDS: SODIUM CHLORIDE FLUSH 10ML SYR IVF SCH ×2 (09:36→21:40)
[2017-12-01] MEDS: ONDANSETRON 2MG/ML, 2ML IV PRN (10:24)
[2017-12-01 11:41] LABS: HIT RESULT NEGATIVE (NEGATIVE)
[2017-12-01] MEDS: morphine SULFATE 10 MG/ML, 1ML IV PRN (15:50)
[2017-12-01] MEDS: FENTANYL PF 2,500 MCG in SODIUM CHLORIDE 0.9% 200 ML IV PRN (18:28)
[2017-12-02] MEDS: ARGATROBAN/NACL 50 MG/50 ML 50 ML IV PRN ×3 (03:24→23:57)
[2017-12-02] MEDS: CIPROFLOXACIN/PMX 400MG/200ML 200 ML IV SCH ×2 (03:25→16:07)
[2017-12-02 04:00] VITALS: BP 116/35
[2017-12-02 05:47] LABS: BASOPHILS # (AUTO) 0.01 x10^3/uL (0-0.1); BASOPHILS % (AUTO) 0 % (0-1); EOSINOPHILS # (AUTO) 0.03 x10^3/uL (0-0.4); EOSINOPHILS % (AUTO) 1 % (1-7); LYMPHOCYTES # (AUTO) 1.85 x10^3/uL (1-3.4); LYMPHOCYTES % (AUTO) 32 % (22-44); MD NO; MEAN CORPUSCULAR HEMOGLOBIN 29.1 pg (27.5-34.5); MEAN CORPUSCULAR HGB CONC 33.2 g/dL (33.2-36.2); MEAN CORPUSCULAR VOLUME 87.7 fL (81-97); MEAN PLATELET VOLUME 8.2 fL (7.4-10.4); MONOCYTES # (AUTO) 0.19 x10^3/uL (0.2-0.8); MONOCYTES % (AUTO) 3 % (2-9); NEUTROPHILS # (AUTO) 3.74 x10^3/uL (1.8-6.8); NEUTROPHILS % (AUTO) 64 % (42-75); PLATELET COUNT 121 x10^3/uL (130-400); RED BLOOD COUNT 2.87 x10^6/uL (4.38-5.82); RED CELL DISTRIBUTION WIDTH 16.2 % (9.4-14.8)
[2017-12-02 05:59] LABS: CHLORIDE 117 mmol/L (98-107)
[2017-12-02 06:05] LABS: ANION GAP 7 mmol/L (5-15); CREATININE 2.22 mg/dL (0.7-1.3)
[2017-12-02] MEDS: ATENOLOL 25 MG TABLET PO SCH (09:30)
[2017-12-02] MEDS: SODIUM CHLORIDE 0.9% 1,000 ML IV SCH ×2 (09:38→20:30)
[2017-12-02] MEDS: FAMOTIDINE 20 MG/2 ML IV SCH (09:39)
[2017-12-02] MEDS: SODIUM CHLORIDE FLUSH 10ML SYR IVF SCH ×2 (09:39→20:43)
[2017-12-02] MEDS ORDERED: VANCOMYCIN 1,100 MG in SODIUM CHLORIDE 0.9% 250 ML IV SCH (10:00)
[2017-12-02] MEDS ORDERED: FENTANYL PF 100 MCG/2ML IVPush PRN (16:00)
[2017-12-02] MEDS: FENTANYL PF 100 MCG/2ML IVPush PRN (22:13)
[2017-12-03 04:00] VITALS: BP 140/54
[2017-12-03 04:40] LABS: BASOPHILS # (AUTO) 0.02 x10^3/uL (0-0.1); BASOPHILS % (AUTO) 0 % (0-1); EOSINOPHILS # (AUTO) 0.04 x10^3/uL (0-0.4); EOSINOPHILS % (AUTO) 1 % (1-7); LYMPHOCYTES # (AUTO) 2.68 x10^3/uL (1-3.4); LYMPHOCYTES % (AUTO) 39 % (22-44); MD NO; MEAN CORPUSCULAR HEMOGLOBIN 29.3 pg (27.5-34.5); MEAN CORPUSCULAR HGB CONC 33.5 g/dL (33.2-36.2); MEAN CORPUSCULAR VOLUME 87.5 fL (81-97); MEAN PLATELET VOLUME 8.4 fL (7.4-10.4); MONOCYTES # (AUTO) 0.14 x10^3/uL (0.2-0.8); MONOCYTES % (AUTO) 2 % (2-9); NEUTROPHILS # (AUTO) 3.95 x10^3/uL (1.8-6.8); NEUTROPHILS % (AUTO) 58 % (42-75); PLATELET COUNT 137 x10^3/uL (130-400); RED BLOOD COUNT 3.02 x10^6/uL (4.38-5.82); RED CELL DISTRIBUTION WIDTH 15.5 % (9.4-14.8)
[2017-12-03 04:46] LABS: ANION GAP 12 mmol/L (5-15); CALCIUM 7.4 mg/dL (8.5-10.1); CHLORIDE 116 mmol/L (98-107); CREATININE 1.95 mg/dL (0.7-1.3); TRIGLYCERIDES 196 mg/dL (50-200)
[2017-12-03] MEDS: CIPROFLOXACIN/PMX 400MG/200ML 200 ML IV SCH (05:04)
[2017-12-03] MEDS: ATENOLOL 25 MG TABLET PO SCH (06:00)
[2017-12-03] MEDS: SODIUM CHLORIDE 0.9% 1,000 ML IV SCH ×2 (07:27→19:03)
[2017-12-03] MEDS: MEROPENEM 500 MG in SODIUM CHLORIDE 0.9% 100 ML IV SCH ×2 (08:49→16:09)
[2017-12-03] MEDS: FAMOTIDINE 20 MG/2 ML IV SCH (08:49)
[2017-12-03] MEDS: SODIUM CHLORIDE FLUSH 10ML SYR IVF SCH (08:51)
[2017-12-03] MEDS ORDERED: DEXTROSE 50%, 50ML SYRINGE IVPush ONE (09:00)
[2017-12-03] MEDS: FENTANYL PF 2,500 MCG in SODIUM CHLORIDE 0.9% 200 ML IV PRN (10:46)
[2017-12-03] MEDS: ARGATROBAN/NACL 50 MG/50 ML 50 ML IV PRN ×2 (10:52→15:53)
[2017-12-03] MEDS ORDERED: EPINEPHRINE 1 MG/ML, 1ML ONE (11:50)
[2017-12-03] MEDS ORDERED: BUPIVACAINE/PF 0.5% ONE (11:50)
[2017-12-03] MEDS ORDERED: BACITRACIN 50,000 UNIT ONE (11:50)
[2017-12-03] MEDS ORDERED: PROPOFOL 10 MG/ML, 20ML ONE (11:55)
[2017-12-03] MEDS ORDERED: ROCURONIUM 10MG/ML,5ML ONE (11:55)
[2017-12-03] MEDS ORDERED: DAKINS TP ONE (12:00)
[2017-12-03] MEDS ORDERED: MIDAZOLAM 1 MG/ML, 2ML ONE (12:00)
[2017-12-03] MEDS ORDERED: ONDANSETRON 2MG/ML, 2ML IVPush PRN (13:30)
[2017-12-03] MEDS ORDERED: hydrALAzine 20 MG/ML, 1ML IV PRN (13:30)
[2017-12-03] MEDS ORDERED: HYDROmorphone 1 MG/ML, 1ML IV PRN (13:30)
[2017-12-03] MEDS ORDERED: ACETAMINOPHEN 325 MG TABLET PO PRN (13:30)
[2017-12-03] MEDS ORDERED: OXYcodone 5 MG/5 ML ORAL.SOL UDC PO PRN (13:30)
[2017-12-03] MEDS ORDERED: LABETALOL 5MG/ML, 20ML IV PRN (13:30)
[2017-12-03] MEDS ORDERED: FENTANYL PF 100 MCG/2ML IV PRN (13:30)
[2017-12-04] MEDS: MEROPENEM 500 MG in SODIUM CHLORIDE 0.9% 100 ML IV SCH ×3 (00:45→16:00)
[2017-12-04] MEDS: SODIUM CHLORIDE FLUSH 10ML SYR IVF SCH ×3 (00:46→20:44)
[2017-12-04] MEDS: ARGATROBAN/NACL 50 MG/50 ML 50 ML IV PRN ×2 (01:04→07:52)
[2017-12-04 04:00] VITALS: BP 130/56
[2017-12-04] MEDS: SODIUM CHLORIDE 0.9% 1,000 ML IV SCH ×2 (05:16→18:00)
[2017-12-04 05:28] LABS: BASOPHILS # (AUTO) 0.02 x10^3/uL (0-0.1); BASOPHILS % (AUTO) 0 % (0-1); EOSINOPHILS # (AUTO) 0.04 x10^3/uL (0-0.4); EOSINOPHILS % (AUTO) 1 % (1-7); LYMPHOCYTES # (AUTO) 2.34 x10^3/uL (1-3.4); LYMPHOCYTES % (AUTO) 42 % (22-44); MD NO; MEAN CORPUSCULAR HEMOGLOBIN 29.7 pg (27.5-34.5); MEAN CORPUSCULAR HGB CONC 34.1 g/dL (33.2-36.2); MEAN CORPUSCULAR VOLUME 87.2 fL (81-97); MONOCYTES # (AUTO) 0.22 x10^3/uL (0.2-0.8); MONOCYTES % (AUTO) 4 % (2-9); NEUTROPHILS # (AUTO) 2.91 x10^3/uL (1.8-6.8); NEUTROPHILS % (AUTO) 53 % (42-75); PLATELET COUNT 137 x10^3/uL (130-400); RED CELL DISTRIBUTION WIDTH 16.3 % (9.4-14.8)
[2017-12-04 05:38] LABS: CHLORIDE 117 mmol/L (98-107)
[2017-12-04 05:45] LABS: ANION GAP 9 mmol/L (5-15); CALCIUM 6.9 mg/dL (8.5-10.1); CREATININE 1.77 mg/dL (0.7-1.3)
[2017-12-04] MEDS: ATENOLOL 25 MG TABLET PO SCH (06:00)
[2017-12-04] MEDS: FENTANYL PF 2,500 MCG in SODIUM CHLORIDE 0.9% 200 ML IV PRN (08:40)
[2017-12-04] MEDS: FAMOTIDINE 20 MG/2 ML IV SCH (10:13)
[2017-12-04 10:36] LABS: INTERNATIONAL NORMALIZED RATIO 1.54 (0.93-1.1); PROTHROMBIN TIME 15.7 Seconds (9.6-11.5)
[2017-12-04 10:53] LABS: OCCULT BLOOD POSITIVE (NEGATIVE)
[2017-12-04] MEDS: ARGATROBAN IN 0.9 % SOD CHLOR 250 ML IV SCH (12:35)
[2017-12-04] MEDS ORDERED: FENTANYL PF 2,500 MCG in SODIUM CHLORIDE 0.9% 200 ML IV PRN (17:30)
[2017-12-05] MEDS: MEROPENEM 500 MG in SODIUM CHLORIDE 0.9% 100 ML IV SCH ×3 (00:47→16:25)
[2017-12-05] MEDS: FENTANYL 1500 MCG/30 ML PCA IV PRN ×2 (03:00→22:48)
[2017-12-05] MEDS: SODIUM CHLORIDE 0.9% 1,000 ML IV SCH ×2 (03:48→13:53)
[2017-12-05 04:00] VITALS: BP 127/64
[2017-12-05] MEDS: ARGATROBAN IN 0.9 % SOD CHLOR 250 ML IV SCH ×2 (04:17→15:08)
[2017-12-05 04:41] LABS: BASOPHILS # (AUTO) 0.01 x10^3/uL (0-0.1); BASOPHILS % (AUTO) 0 % (0-1); EOSINOPHILS # (AUTO) 0.04 x10^3/uL (0-0.4); EOSINOPHILS % (AUTO) 1 % (1-7); LYMPHOCYTES # (AUTO) 2.95 x10^3/uL (1-3.4); LYMPHOCYTES % (AUTO) 46 % (22-44); MD NO; MEAN CORPUSCULAR HEMOGLOBIN 29.4 pg (27.5-34.5); MEAN CORPUSCULAR HGB CONC 33.6 g/dL (33.2-36.2); MEAN CORPUSCULAR VOLUME 87.7 fL (81-97); MEAN PLATELET VOLUME 7.6 fL (7.4-10.4); MONOCYTES # (AUTO) 0.09 x10^3/uL (0.2-0.8); MONOCYTES % (AUTO) 1 % (2-9); NEUTROPHILS % (AUTO) 52 % (42-75); PLATELET COUNT 136 x10^3/uL (130-400); RED BLOOD COUNT 2.98 x10^6/uL (4.38-5.82); RED CELL DISTRIBUTION WIDTH 16.8 % (9.4-14.8)
[2017-12-05 04:45] LABS: ANION GAP 8 mmol/L (5-15); CHLORIDE 117 mmol/L (98-107)
[2017-12-05] MEDS: ATENOLOL 25 MG TABLET PO SCH (06:00)
[2017-12-05] MEDS: FAMOTIDINE 20 MG TABLET PO SCH (11:59)
[2017-12-05] MEDS: SODIUM CHLORIDE FLUSH 10ML SYR IVF SCH ×2 (12:00→20:45)
[2017-12-05 14:15] VITALS: BP 151/79
[2017-12-05] MEDS: RIVAROXABAN 20 MG TABLET PO SCH (18:04)
[2017-12-05 20:37] VITALS: BP 134/70
[2017-12-06] MEDS: SODIUM CHLORIDE 0.9% 1,000 ML IV SCH ×2 (00:42→09:09)
[2017-12-06] MEDS: MEROPENEM 500 MG in SODIUM CHLORIDE 0.9% 100 ML IV SCH ×3 (00:42→18:46)
[2017-12-06 03:38] VITALS: BP 122/67
[2017-12-06 05:11] LABS: BASOPHILS # (AUTO) 0.02 x10^3/uL (0-0.1); BASOPHILS % (AUTO) 0 % (0-1); EOSINOPHILS # (AUTO) 0.05 x10^3/uL (0-0.4); EOSINOPHILS % (AUTO) 1 % (1-7); LYMPHOCYTES # (AUTO) 3.22 x10^3/uL (1-3.4); LYMPHOCYTES % (AUTO) 50 % (22-44); MD NO; MEAN CORPUSCULAR HEMOGLOBIN 29.8 pg (27.5-34.5); MEAN CORPUSCULAR VOLUME 87.7 fL (81-97); MEAN PLATELET VOLUME 7.8 fL (7.4-10.4); MONOCYTES # (AUTO) 0.23 x10^3/uL (0.2-0.8); MONOCYTES % (AUTO) 4 % (2-9); NEUTROPHILS # (AUTO) 2.97 x10^3/uL (1.8-6.8); NEUTROPHILS % (AUTO) 46 % (42-75); PLATELET COUNT 132 x10^3/uL (130-400); RED BLOOD COUNT 2.81 x10^6/uL (4.38-5.82); RED CELL DISTRIBUTION WIDTH 16.3 % (9.4-14.8)
[2017-12-06 05:21] LABS: CHLORIDE 117 mmol/L (98-107)
[2017-12-06 05:29] LABS: ANION GAP 10 mmol/L (5-15); CALCIUM 7.2 mg/dL (8.5-10.1); CREATININE 1.46 mg/dL (0.7-1.3)
[2017-12-06] MEDS: ATENOLOL 25 MG TABLET PO SCH (05:55)
[2017-12-06 06:45] VITALS: BP 144/72
[2017-12-06] MEDS: FAMOTIDINE 20 MG TABLET PO SCH ×2 (09:09→19:47)
[2017-12-06] MEDS: SODIUM CHLORIDE FLUSH 10ML SYR IVF SCH ×2 (09:10→19:58)
[2017-12-06 13:07] VITALS: BP 139/73
[2017-12-06] MEDS ORDERED: BUPIVACAINE/PF 0.5% ONE (15:41)
[2017-12-06] MEDS ORDERED: EPINEPHRINE 1 MG/ML, 1ML ONE (15:41)
[2017-12-06] MEDS ORDERED: BACITRACIN 50,000 UNIT ONE (15:41)
[2017-12-06] MEDS ORDERED: MIDAZOLAM 1 MG/ML, 2ML ONE (15:55)
[2017-12-06] MEDS ORDERED: FENTANYL PF 100 MCG/2ML ONE (15:55)
[2017-12-06] MEDS ORDERED: ONDANSETRON 2MG/ML, 2ML ONE (16:06)
[2017-12-06] MEDS ORDERED: PROPOFOL 10 MG/ML, 20ML ONE (16:06)
[2017-12-06] MEDS ORDERED: PHENYLEPHRINE 10 MG/ML ONE (16:06)
[2017-12-06] MEDS ORDERED: FENTANYL PF 250 MCG/5ML ONE (16:17)
[2017-12-06] MEDS ORDERED: ONDANSETRON 2MG/ML, 2ML IVPush PRN (16:30)
[2017-12-06] MEDS ORDERED: HYDROmorphone 1 MG/ML, 1ML IV PRN (16:30)
[2017-12-06] MEDS ORDERED: HYDROcodone/APAP 7.5-325MG/15ML UDC PO PRN (16:30)
[2017-12-06] MEDS ORDERED: ACETAMINOPHEN 325 MG TABLET PO PRN (16:30)
[2017-12-06] MEDS ORDERED: OXYcodone 5 MG/5 ML ORAL.SOL UDC PO PRN (16:30)
[2017-12-06] MEDS ORDERED: FENTANYL PF 100 MCG/2ML IV PRN (16:30)
[2017-12-06] MEDS: RIVAROXABAN 20 MG TABLET PO SCH (18:46)
[2017-12-06 19:25] VITALS: BP_SYST 109; BP_SYST 151; BP_DIAS 67; BP_DIAS 77
[2017-12-06] MEDS: HYDROcodone/APAP 5/325 TABLET PO PRN ×2 (19:47→23:55)
[2017-12-06] MEDS: morphine SULFATE 10 MG/ML, 1ML IV PRN ×3 (21:38→23:05)
[2017-12-07 00:02] VITALS: BP 117/68
[2017-12-07] MEDS: SODIUM CHLORIDE 0.9% 1,000 ML IV SCH ×2 (01:49→11:30)
[2017-12-07] MEDS: MEROPENEM 500 MG in SODIUM CHLORIDE 0.9% 100 ML IV SCH ×2 (03:27→11:30)
[2017-12-07 04:10] VITALS: BP 106/64
[2017-12-07] MEDS: HYDROcodone/APAP 5/325 TABLET PO PRN ×5 (04:21→21:11)
[2017-12-07] MEDS: ATENOLOL 25 MG TABLET PO SCH (05:44)
[2017-12-07 07:21] LABS: BASOPHILS # (AUTO) 0.03 x10^3/uL (0-0.1); BASOPHILS % (AUTO) 0 % (0-1); EOSINOPHILS # (AUTO) 0.03 x10^3/uL (0-0.4); EOSINOPHILS % (AUTO) 1 % (1-7); LYMPHOCYTES # (AUTO) 2.83 x10^3/uL (1-3.4); LYMPHOCYTES % (AUTO) 48 % (22-44); MD NO; MEAN CORPUSCULAR HEMOGLOBIN 29.4 pg (27.5-34.5); MEAN CORPUSCULAR HGB CONC 33.5 g/dL (33.2-36.2); MEAN CORPUSCULAR VOLUME 87.7 fL (81-97); MEAN PLATELET VOLUME 7.9 fL (7.4-10.4); MONOCYTES # (AUTO) 0.21 x10^3/uL (0.2-0.8); MONOCYTES % (AUTO) 4 % (2-9); NEUTROPHILS # (AUTO) 2.78 x10^3/uL (1.8-6.8); NEUTROPHILS % (AUTO) 47 % (42-75); PLATELET COUNT 130 x10^3/uL (130-400); RED BLOOD COUNT 2.72 x10^6/uL (4.38-5.82); RED CELL DISTRIBUTION WIDTH 16.2 % (9.4-14.8)
[2017-12-07 07:30] LABS: ANION GAP 6 mmol/L (5-15); CALCIUM 6.7 mg/dL (8.5-10.1); CHLORIDE 117 mmol/L (98-107); CREATININE 1.48 mg/dL (0.7-1.3)
[2017-12-07 08:04] VITALS: BP 105/61
[2017-12-07] MEDS: FAMOTIDINE 20 MG TABLET PO SCH ×2 (09:22→21:11)
[2017-12-07] MEDS: SODIUM CHLORIDE FLUSH 10ML SYR IVF SCH ×2 (09:25→21:12)
[2017-12-07 13:15] VITALS: BP 133/72
[2017-12-07] MEDS ORDERED: FUROSEMIDE 40 MG/4 ML IV ONE (14:00)
[2017-12-07] MEDS: RIVAROXABAN 20 MG TABLET PO SCH (17:36)
[2017-12-07 19:58] VITALS: BP 139/69
[2017-12-07] MEDS: morphine SULFATE 10 MG/ML, 1ML IV PRN ×2 (21:11→22:29)
[2017-12-07] MEDS: MEROPENEM 1 GM in SODIUM CHLORIDE 0.9% 100 ML IV SCH (22:30)
[2017-12-07] MEDS: DIPHENHYDRAMINE 50 MG/ML, 1ML IV PRN (22:30)
[2017-12-08 01:19] VITALS: BP 129/72
[2017-12-08] MEDS: morphine SULFATE 10 MG/ML, 1ML IV PRN ×2 (01:27→22:40)
[2017-12-08] MEDS: HYDROcodone/APAP 5/325 TABLET PO PRN ×4 (03:53→17:40)
[2017-12-08 04:12] VITALS: BP 136/63
[2017-12-08] MEDS: ATENOLOL 25 MG TABLET PO SCH (05:27)
[2017-12-08 05:47] LABS: CALCIUM 7.5 mg/dL (8.5-10.1); CHLORIDE 116 mmol/L (98-107)
[2017-12-08 05:52] LABS: BASOPHILS # (AUTO) 0.03 x10^3/uL (0-0.1); BASOPHILS % (AUTO) 1 % (0-1); EOSINOPHILS # (AUTO) 0.03 x10^3/uL (0-0.4); EOSINOPHILS % (AUTO) 1 % (1-7); LYMPHOCYTES % (AUTO) 50 % (22-44); MD NO; MEAN CORPUSCULAR HEMOGLOBIN 29.6 pg (27.5-34.5); MEAN CORPUSCULAR HGB CONC 33.8 g/dL (33.2-36.2); MEAN CORPUSCULAR VOLUME 87.7 fL (81-97); MEAN PLATELET VOLUME 8.2 fL (7.4-10.4); MONOCYTES % (AUTO) 3 % (2-9); NEUTROPHILS # (AUTO) 2.79 x10^3/uL (1.8-6.8); NEUTROPHILS % (AUTO) 46 % (42-75); PLATELET COUNT 138 x10^3/uL (130-400); RED BLOOD COUNT 2.76 x10^6/uL (4.38-5.82); RED CELL DISTRIBUTION WIDTH 16.5 % (9.4-14.8)
[2017-12-08 05:53] LABS: ALANINE AMINOTRANSFERASE 16 U/L (12-78); ALBUMIN 1.8 g/dL (3.4-5.0); ALKALINE PHOSPHATASE 56 U/L (45-117); ANION GAP 7 mmol/L (5-15); BILIRUBIN,TOTAL 0.9 mg/dL (0.2-1.0); CREATININE 1.95 mg/dL (0.7-1.3); TOTAL PROTEIN 4.2 g/dL (6.4-8.2)
[2017-12-08] MEDS: FAMOTIDINE 20 MG TABLET PO SCH ×2 (09:23→20:25)
[2017-12-08] MEDS: SODIUM CHLORIDE FLUSH 10ML SYR IVF SCH ×2 (09:23→20:25)
[2017-12-08 10:06] VITALS: BP 118/67
[2017-12-08] MEDS: MEROPENEM 1 GM in SODIUM CHLORIDE 0.9% 100 ML IV SCH ×2 (11:45→22:40)
[2017-12-08] MEDS: RIVAROXABAN 20 MG TABLET PO SCH (17:40)
[2017-12-08 17:46] VITALS: BP 135/71
[2017-12-08 20:00] VITALS: BP 117/63
[2017-12-09 01:41] VITALS: BP 157/71
[2017-12-09] MEDS: morphine SULFATE 10 MG/ML, 1ML IV PRN ×3 (04:13→19:44)
[2017-12-09 05:47] LABS: MEAN CORPUSCULAR HEMOGLOBIN 29.5 pg (27.5-34.5); MEAN CORPUSCULAR HGB CONC 33.6 g/dL (33.2-36.2); MEAN CORPUSCULAR VOLUME 87.8 fL (81-97); MEAN PLATELET VOLUME 8.1 fL (7.4-10.4); PLATELET COUNT 151 x10^3/uL (130-400); RED BLOOD COUNT 2.99 x10^6/uL (4.38-5.82); RED CELL DISTRIBUTION WIDTH 16.4 % (9.4-14.8)
[2017-12-09 05:57] LABS: ANION GAP 6 mmol/L (5-15); CALCIUM 7.7 mg/dL (8.5-10.1); CHLORIDE 115 mmol/L (98-107); CREATININE 1.73 mg/dL (0.7-1.3)
[2017-12-09] MEDS: ATENOLOL 25 MG TABLET PO SCH (06:03)
[2017-12-09 07:09] LABS: MD YES
[2017-12-09 07:11] LABS: EOS#(MANUAL) 0.06 x10^3/uL (0.0-0.4); EOS% (MANUAL) 1 % (1-7); LYMPH#(MANUAL) 3.84 x10^3/uL (1-3.4); LYMPHS% (MANUAL) 60 % (22-44); MONOS#(MANUAL) 0.13 x10^3/uL (0.3-2.7); MONOS% (MANUAL) 2 % (2-9); SEG#(MANUAL) 2.37 x10^3/uL (1.8-6.8); SEGS% (MANUAL) 37 % (42-75)
[2017-12-09 07:13] LABS: ANISOCYTOSIS 1+; SMUDGE CELLS 2+
[2017-12-09 07:14] LABS: <PLATELET ESTIMATE> ADEQUATE; <PLT MORPHOLOGY> NORMAL PLT MORPH
[2017-12-09 08:20] VITALS: BP 122/47
[2017-12-09] MEDS: MEROPENEM 1 GM in SODIUM CHLORIDE 0.9% 100 ML IV SCH (10:58)
[2017-12-09] MEDS: SODIUM CHLORIDE FLUSH 10ML SYR IVF SCH ×2 (10:59→19:45)
[2017-12-09 12:13] LABS: HCT (SEDRATE) 28.8 % (39.2-51.8)
[2017-12-09] MEDS: ERTAPENEM 1 GM in SODIUM CHLORIDE 0.9% 50 ML IV SCH (12:42)
[2017-12-09 16:00] VITALS: BP 142/76
[2017-12-09] MEDS: RIVAROXABAN 20 MG TABLET PO SCH (17:42)
[2017-12-09] MEDS: HYDROcodone/APAP 5/325 TABLET PO PRN (17:45)
[2017-12-09 18:25] VITALS: BP 118/70
[2017-12-09] MEDS: FAMOTIDINE 20 MG TABLET PO SCH (19:45)
[2017-12-10 01:50] VITALS: BP 127/73
[2017-12-10 05:15] LABS: MEAN CORPUSCULAR HEMOGLOBIN 29.4 pg (27.5-34.5); MEAN CORPUSCULAR HGB CONC 33.4 g/dL (33.2-36.2); MEAN PLATELET VOLUME 7.9 fL (7.4-10.4); PLATELET COUNT 147 x10^3/uL (130-400); RED BLOOD COUNT 2.84 x10^6/uL (4.38-5.82); RED CELL DISTRIBUTION WIDTH 16.7 % (9.4-14.8)
[2017-12-10 05:25] LABS: CALCIUM 7.6 mg/dL (8.5-10.1); CHLORIDE 115 mmol/L (98-107)
[2017-12-10 05:28] LABS: ANION GAP 7 mmol/L (5-15); CREATININE 1.45 mg/dL (0.7-1.3)
[2017-12-10] MEDS: ATENOLOL 25 MG TABLET PO SCH (05:52)
[2017-12-10 06:34] LABS: MD YES
[2017-12-10 07:31] VITALS: BP 146/78
[2017-12-10 07:54] LABS: BAND#(MANUAL) 0.17 x10^3/uL; BANDS%(MANUAL) 3 % (0-7); LYMPH#(MANUAL) 3.48 x10^3/uL (1-3.4); LYMPHS% (MANUAL) 61 % (22-44); MONOS#(MANUAL) 0.06 x10^3/uL (0.3-2.7); MONOS% (MANUAL) 1 % (2-9); REACTIVE LYMPHS # (MANUAL) 0.06 x10^3/uL (0-0); REACTIVE LYMPHS % (MANUAL) 1 % (0-0); SEG#(MANUAL) 1.94 x10^3/uL (1.8-6.8); SEGS% (MANUAL) 34 % (42-75)
[2017-12-10 07:56] LABS: <PLATELET ESTIMATE> ADEQUATE; <PLT MORPHOLOGY> NORMAL PLT MORPH; ANISOCYTOSIS 1+; SMUDGE CELLS 2+
[2017-12-10] MEDS: SODIUM CHLORIDE FLUSH 10ML SYR IVF SCH ×2 (09:33→19:56)
[2017-12-10] MEDS: HYDROcodone/APAP 5/325 TABLET PO PRN ×2 (09:33→16:02)
[2017-12-10] MEDS: ERTAPENEM 1 GM in SODIUM CHLORIDE 0.9% 50 ML IV SCH (12:00)
[2017-12-10 13:36] VITALS: BP 120/64
[2017-12-10] MEDS: RIVAROXABAN 20 MG TABLET PO SCH (17:48)
[2017-12-10 19:55] VITALS: BP 129/73
[2017-12-10] MEDS: FAMOTIDINE 20 MG TABLET PO SCH (19:56)
[2017-12-10] MEDS: morphine SULFATE 10 MG/ML, 1ML IV PRN (19:56)
[2017-12-10] MEDS ORDERED: FAMO20TA7 PO (22:53)
[2017-12-10] MEDS ORDERED: Ertapenem IVPB (22:53)
[2017-12-11 01:22] VITALS: BP 138/79
[2017-12-11] MEDS: DIPHENHYDRAMINE 25 MG CAPSULE PO PRN ×2 (02:03→20:37)
[2017-12-11 04:44] LABS: MEAN CORPUSCULAR HEMOGLOBIN 29.1 pg (27.5-34.5); MEAN CORPUSCULAR HGB CONC 33.1 g/dL (33.2-36.2); MEAN PLATELET VOLUME 8.2 fL (7.4-10.4); PLATELET COUNT 141 x10^3/uL (130-400); RED BLOOD COUNT 2.96 x10^6/uL (4.38-5.82); RED CELL DISTRIBUTION WIDTH 16.6 % (9.4-14.8)
[2017-12-11 05:03] LABS: CALCIUM 7.5 mg/dL (8.5-10.1); CHLORIDE 113 mmol/L (98-107)
[2017-12-11 05:07] LABS: ANION GAP 7 mmol/L (5-15); CREATININE 1.43 mg/dL (0.7-1.3)
[2017-12-11] MEDS: ATENOLOL 25 MG TABLET PO SCH (06:28)
[2017-12-11 06:30] VITALS: BP 136/77
[2017-12-11 06:33] LABS: MD YES
[2017-12-11 06:35] LABS: LYMPH#(MANUAL) 3.83 x10^3/uL (1-3.4); LYMPHS% (MANUAL) 66 % (22-44); MONOS#(MANUAL) 0.12 x10^3/uL (0.3-2.7); MONOS% (MANUAL) 2 % (2-9); SEG#(MANUAL) 1.86 x10^3/uL (1.8-6.8); SEGS% (MANUAL) 32 % (42-75)
[2017-12-11 06:36] LABS: ANISOCYTOSIS 1+
[2017-12-11 06:37] LABS: <PLATELET ESTIMATE> ADEQUATE; <PLT MORPHOLOGY> NORMAL PLT MORPH; SMUDGE CELLS 2+
[2017-12-11] MEDS: SODIUM CHLORIDE FLUSH 10ML SYR IVF SCH ×2 (10:11→20:36)
[2017-12-11 10:17] VITALS: BP 137/73
[2017-12-11] MEDS: ERTAPENEM 1 GM in SODIUM CHLORIDE 0.9% 50 ML IV SCH (13:25)
[2017-12-11] MEDS: HYDROcodone/APAP 5/325 TABLET PO PRN ×2 (13:31→20:37)
[2017-12-11 16:14] VITALS: BP 132/63
[2017-12-11] MEDS: RIVAROXABAN 20 MG TABLET PO SCH (17:38)
[2017-12-11 20:18] VITALS: BP 129/62
[2017-12-11] MEDS: FAMOTIDINE 20 MG TABLET PO SCH (20:37)
[2017-12-12 02:50] VITALS: BP 134/73
[2017-12-12] MEDS: HYDROcodone/APAP 5/325 TABLET PO PRN ×2 (03:48→21:29)
[2017-12-12] MEDS: ATENOLOL 25 MG TABLET PO SCH (05:41)
[2017-12-12 06:18] LABS: HCT (SEDRATE) 25.3 % (39.2-51.8); MEAN CORPUSCULAR HEMOGLOBIN 29.2 pg (27.5-34.5); MEAN CORPUSCULAR HGB CONC 33.2 g/dL (33.2-36.2); MEAN CORPUSCULAR VOLUME 87.7 fL (81-97); PLATELET COUNT 137 x10^3/uL (130-400); RED BLOOD COUNT 2.89 x10^6/uL (4.38-5.82); RED CELL DISTRIBUTION WIDTH 16.7 % (9.4-14.8)
[2017-12-12 06:29] LABS: ANION GAP 6 mmol/L (5-15); CALCIUM 7.6 mg/dL (8.5-10.1); CHLORIDE 113 mmol/L (98-107)
[2017-12-12 06:33] LABS: ALANINE AMINOTRANSFERASE 14 U/L (12-78); ALKALINE PHOSPHATASE 62 U/L (45-117); BILIRUBIN,TOTAL 0.6 mg/dL (0.2-1.0); C-REACTIVE PROTEIN, QUANT 0.69 mg/dL (0.02-0.49); CREATININE 1.55 mg/dL (0.7-1.3); TOTAL PROTEIN 4.3 g/dL (6.4-8.2)
[2017-12-12 07:09] LABS: SEDIMENTATION RATE 32 mm/hr (0-10)
[2017-12-12 07:40] LABS: MD YES
[2017-12-12 07:42] VITALS: BP 155/79
[2017-12-12 07:44] LABS: EOS#(MANUAL) 0.25 x10^3/uL (0.0-0.4); EOS% (MANUAL) 5 % (1-7); LYMPH#(MANUAL) 3.35 x10^3/uL (1-3.4); LYMPHS% (MANUAL) 67 % (22-44); MONOS% (MANUAL) 2 % (2-9); SEGS% (MANUAL) 26 % (42-75)
[2017-12-12 07:46] LABS: <PLATELET ESTIMATE> ADEQUATE; <PLT MORPHOLOGY> NORMAL PLT MORPH; ANISOCYTOSIS 1+; HYPOCHROMIA 1+
[2017-12-12] MEDS: FAMOTIDINE 20 MG TABLET PO SCH ×2 (09:14→20:04)
[2017-12-12] MEDS: SODIUM CHLORIDE FLUSH 10ML SYR IVF SCH ×2 (09:15→20:04)
[2017-12-12] MEDS: ERTAPENEM 1 GM in SODIUM CHLORIDE 0.9% 50 ML IV SCH (12:14)
[2017-12-12 13:18] VITALS: BP 145/72
[2017-12-12] MEDS: morphine SULFATE 10 MG/ML, 1ML IV PRN ×2 (13:24→14:08)
[2017-12-12] MEDS ORDERED: FUROSEMIDE 20 MG/2 ML IV ONE (14:00)
[2017-12-12] MEDS: RIVAROXABAN 20 MG TABLET PO SCH (17:11)
[2017-12-12 20:17] VITALS: BP 128/55
[2017-12-12] MEDS: DIPHENHYDRAMINE 50 MG/ML, 1ML IV PRN (21:29)
[2017-12-13 02:29] VITALS: BP 124/72
[2017-12-13] MEDS: ATENOLOL 25 MG TABLET PO SCH (05:36)
[2017-12-13 06:03] LABS: MEAN CORPUSCULAR HEMOGLOBIN 29.1 pg (27.5-34.5); MEAN CORPUSCULAR HGB CONC 33.5 g/dL (33.2-36.2); MEAN CORPUSCULAR VOLUME 86.8 fL (81-97); MEAN PLATELET VOLUME 8.4 fL (7.4-10.4); PLATELET COUNT 141 x10^3/uL (130-400); RED BLOOD COUNT 3.05 x10^6/uL (4.38-5.82); RED CELL DISTRIBUTION WIDTH 16.1 % (9.4-14.8)
[2017-12-13 06:12] LABS: ANION GAP 10 mmol/L (5-15); CALCIUM 7.6 mg/dL (8.5-10.1); CHLORIDE 111 mmol/L (98-107); CREATININE 1.62 mg/dL (0.7-1.3)
[2017-12-13 06:43] LABS: MD YES
[2017-12-13 07:14] LABS: EOS% (MANUAL) 2 % (1-7); LYMPHS% (MANUAL) 66 % (22-44); MONOS% (MANUAL) 2 % (2-9); SEGS% (MANUAL) 30 % (42-75)
[2017-12-13 07:15] LABS: ANISOCYTOSIS 1+
[2017-12-13 07:17] LABS: <PLATELET ESTIMATE> ADEQUATE; <PLT MORPHOLOGY> NORMAL PLT MORPH; SMUDGE CELLS 2+
[2017-12-13] MEDS: SODIUM CHLORIDE FLUSH 10ML SYR IVF SCH (09:44)
[2017-12-13] MEDS: FAMOTIDINE 20 MG TABLET PO SCH (09:44)
[2017-12-13 11:16] VITALS: BP 113/72
[2017-12-13] MEDS: ERTAPENEM 1 GM in SODIUM CHLORIDE 0.9% 50 ML IV SCH (12:13)
[2017-12-13 15:40] VITALS: BP 130/80
[2017-12-13] MEDS ORDERED: HYDR-3240 PO (15:58)
[2017-12-13] MEDS ORDERED: SULF1TAB24 PO (15:59)
[2017-12-13] MEDS ORDERED: DOCU-131 PO (15:59)
== END 2017-12-13 16:32 | DRG 270 ==
LOC: OR 14:49 → 4NOR 19:30 → OR 20:38 → 4NOR 20:39 → CCU 11-29 23:41 → 4NOR 12-05 14:05
PROVIDERS: ADMIT Surgery; ATTEND Surgery
PROC: 0Y960ZZ Drainage of Left Inguinal Region, Open Approach (ICD-10-PCS; 2017-11-23)
PROC: B41G1ZZ Fluoroscopy of Left Lower Extremity Arteries using Low Osmolar Contrast (ICD-10-PCS; 2017-11-26)
PROC: 041 Lower Arteries, Bypass (ICD-10-PCS; 2017-11-29)
PROC: 04PY07Z Removal of Autologous Tissue Substitute from Lower Artery, Open Approach (ICD-10-PCS; 2017-11-29)
PROC: 04UL07Z Supplement Left Femoral Artery with Autologous Tissue Substitute, Open Approach (ICD-10-PCS; 2017-11-29)
PROC: [UNRECOGNIZED PROCEDURE] (2017-11-29)
PROC: 0BH17EZ Insertion of Endotracheal Airway into Trachea, Via Natural or Artificial Opening (ICD-10-PCS; 2017-11-29)
PROC: 30233N1 Transfusion of Nonautologous Red Blood Cells into Peripheral Vein, Percutaneous Approach (ICD-10-PCS; 2017-11-29)
PROC: 5A1945Z Respiratory Ventilation, 24-96 Consecutive Hours (ICD-10-PCS; principal; 2017-11-29 15:00)
PROC: 3C1ZX8Z Irrigation of Indwelling Device using Irrigating Substance, External Approach (ICD-10-PCS; 2017-12-03)
PROC: 2W1MX6Z Compression of Left Lower Extremity using Pressure Dressing (ICD-10-PCS; 2017-12-03)
PROC: 0Y980ZZ Drainage of Left Femoral Region, Open Approach (ICD-10-PCS; 2017-12-06)
PROC: 04CQ0ZZ Extirpation of Matter from Left Anterior Tibial Artery, Open Approach (ICD-10-PCS; 2017-12-06)
PROC: 04CJ0ZZ Extirpation of Matter from Left External Iliac Artery, Open Approach (ICD-10-PCS; 2017-12-06)
PROC: 3C1ZX8Z Irrigation of Indwelling Device using Irrigating Substance, External Approach (ICD-10-PCS; 2017-12-06)
PROC: 2W1MX6Z Compression of Left Lower Extremity using Pressure Dressing (ICD-10-PCS; 2017-12-06)
PROC: 02HV33Z Insertion of Infusion Device into Superior Vena Cava, Percutaneous Approach (ICD-10-PCS; 2017-12-09)
PROC: B548ZZA Ultrasonography of Superior Vena Cava, Guidance (ICD-10-PCS; 2017-12-09)
DX: T82.7XXA Infection and inflammatory reaction due to other cardiac and vascular devices, implants and grafts, initial encounter (principal); J96.00 Acute respiratory failure, unspecified whether with hypoxia or hypercapnia; E43 Unspecified severe protein-calorie malnutrition; Z99.11 Dependence on respirator [ventilator] status; D68.9 Coagulation defect, unspecified; D69.6 Thrombocytopenia, unspecified; E83.42 Hypomagnesemia; N18.4 Chronic kidney disease, stage 4 (severe); D62 Acute posthemorrhagic anemia; L02.214 Cutaneous abscess of groin; I89.8 Other specified noninfective disorders of lymphatic vessels and lymph nodes; I12.9 Hypertensive chronic kidney disease with stage 1 through stage 4 chronic kidney disease, or unspecified chronic kidney disease; D63.8 Anemia in other chronic diseases classified elsewhere; I70.212 Atherosclerosis of native arteries of extremities with intermittent claudication, left leg; F17.290 Nicotine dependence, other tobacco product, uncomplicated; B96.1 Klebsiella pneumoniae [K. pneumoniae] as the cause of diseases classified elsewhere; D75.82 Heparin induced thrombocytopenia (HIT); T45.515A Adverse effect of anticoagulants, initial encounter; D72.829 Elevated white blood cell count, unspecified; E87.5 Hyperkalemia; Y83.2 Surgical operation with anastomosis, bypass or graft as the cause of abnormal reaction of the patient, or of later complication, without mention of misadventure at the time of the procedure; Z79.01 Long term (current) use of anticoagulants; Z79.2 Long term (current) use of antibiotics; Z68.28 Body mass index [BMI] 28.0-28.9, adult; Z88.5 Allergy status to narcotic agent; Y92.89 Other specified places as the place of occurrence of the external cause; T82.868A Thrombosis due to vascular prosthetic devices, implants and grafts, initial encounter
CPT/HCPCS: 36415; 36569; 36600; 71045; 75710; 76937; 77001; 80047; 80048; 80053; 80202; 82040; 82272; 82330; 82803; 82805; 82947; 82962; 83735; 84100; 84132; 84295; 84478; 85014; 85018; 85025; 85347; 85520; 85610; 85651; 85730; 86022; 86140; 86850; 86900; 86923; 87070; 87075; 87077; 87081; 87186; 87205; 93005; 93970; 94002; 94003; 94150; C1729; J0171; J0690; J0744; J1100; J1170; J1335; J1644; J1885; J1940; J2185; J2250; J2405; J2543; J2704; J2710; J2720; J3010; J3370; J3480; J3490; P9045; Q9966; C1751; C1757; C1762; C1894; J0330; J0883; J1200; J2270; J2370; J2440; J3475; J7030; J7050; J7120; P9016; Q0163; S0028

== ENCOUNTER 2018-02-21 16:11 | Emergency (ER) | payer OTHER ==
[~2018-02-21] VITALS: Ht 177.8 cm; Wt 78.1 kg
[~2018-02-21 16:11] MED LIST changes: +DOCU-131 PO; +Ertapenem IVPB; +FAMO20TA7 PO; -ONDANSETRON 2MG/ML, 2ML ONE; +SULF1TAB24 PO
[2018-02-21 16:46] LABS: MEAN CORPUSCULAR HEMOGLOBIN 26.7 pg (27.5-34.5); MEAN CORPUSCULAR HGB CONC 33.2 g/dL (33.2-36.2); MEAN CORPUSCULAR VOLUME 80.4 fL (81-97); MEAN PLATELET VOLUME 8.1 fL (7.4-10.4); PLATELET COUNT 143 x10^3/uL (130-400); RED BLOOD COUNT 4.59 x10^6/uL (4.38-5.82); RED CELL DISTRIBUTION WIDTH 16.6 % (9.4-14.8)
[2018-02-21 16:58] LABS: ALBUMIN 3.9 g/dL (3.4-5.0); ANION GAP 12 mmol/L (5-15); CALCIUM 8.5 mg/dL (8.5-10.1); CHLORIDE 112 mmol/L (98-107); CREATININE 2.19 mg/dL (0.7-1.3)
[2018-02-21 17:02] LABS: MD YES; TROPONIN I < 0.015 ng/mL (0.000-0.045)
[2018-02-21 17:10] LABS: ANISOCYTOSIS 1+; BAND#(MANUAL) 0.09 x10^3/uL; BANDS%(MANUAL) 1 % (0-7); LYMPH#(MANUAL) 5.48 x10^3/uL (1-3.4); LYMPHS% (MANUAL) 63 % (22-44); MONOS#(MANUAL) 0.17 x10^3/uL (0.3-2.7); MONOS% (MANUAL) 2 % (2-9); SEG#(MANUAL) 2.96 x10^3/uL (1.8-6.8); SEGS% (MANUAL) 34 % (42-75)
[2018-02-21 17:11] LABS: <PLATELET ESTIMATE> ADEQUATE; OVALOCYTES 1+; SMUDGE CELLS 2+
[2018-02-21 17:12] LABS: <PLT MORPHOLOGY> NORMAL PLT MORPH
[2018-02-21 17:50] VITALS: BP 156/82
== END 2018-02-21 18:07 | disposition home or self-care (01) ==
LOC: ED 17:55
DX: I12.9 Hypertensive chronic kidney disease with stage 1 through stage 4 chronic kidney disease, or unspecified chronic kidney disease (principal); N18.3 Chronic kidney disease, stage 3 (moderate); Z87.891 Personal history of nicotine dependence
CPT/HCPCS: 36415; 71046; 80048; 82040; 84484; 85025; 93005; 99285

== ENCOUNTER 2019-03-15 08:51 | Outpatient (CLI) | payer OTHER | END 2019-03-15 23:59 | disposition home or self-care (01) | LOC: CVU 08:51 | PROVIDERS: ATTEND Family Medicine | DX: I70.201 Unspecified atherosclerosis of native arteries of extremities, right leg (principal); I12.9 Hypertensive chronic kidney disease with stage 1 through stage 4 chronic kidney disease, or unspecified chronic kidney disease; N18.9 Chronic kidney disease, unspecified | CPT/HCPCS: 93922; 93925 ==